=== PATIENT | male | born 1960 | race Caucasian/White ===

== ENCOUNTER 2021-01-28 09:06 | Emergency (ER) | payer MEDICAID, MEDICARE ==
--- NOTE | 2021-01-28 09:29 | EDM.PDOC ---
ED HPI GENERAL MEDICAL PROBLEM - General Chief Complaint: Genitourinary Problem Stated Complaint: BLOATED-SENT BY CLINIC Time Seen by Provider: 01/28/21 09:19 - History of Present Illness INITIAL COMMENTS - FREE TEXT/NARRATIVE: 60-year-old male presents the emergency room with difficulty voiding increased edema in his lower extremities and abdominal distention. Patient has history of renal failure. Patient has noticed over the last couple of weeks that he is having more difficulty passing urine. He was able to give us a urine specimen here but patient states he had to drink 2 cups of coffee before coming in. Patient normally uses 1-1/2 L of oxygen. Patient states he has had bad lungs. Patient denies any chest pain at this point he is a little uncomfortable in his extremities and his abdomen from the edema and distention. Patient also thinks he had some testicular swelling about a week ago. Generalized Pain Score (Numeric/FACES): 5 - Related Data Allergies Allergy/AdvReac Type Severity Reaction Status Date / Time No Known Allergies Allergy Verified 01/28/21 09:28 Home Meds: Home Meds Furosemide 40 mg PO DAILY #33 ml 01/28/21 [Rx] Furosemide 40 mg PO DAILY #33 tablet 01/28/21 [Rx] Furosemide [Lasix] 40 mg PO DAILY 01/28/21 [History] Rosuvastatin Calcium 20 mg PO DAILY 01/28/21 [History] Spironolactone [Aldactone] 25 mg PO DAILY 01/28/21 [History] Spironolactone [Aldactone] 25 mg PO DAILY #33 tab 01/28/21 [Rx] Spironolactone [Aldactone] 25 mg PO DAILY #33 tablet 01/28/21 [Rx] lisinopriL [Lisinopril] 20 mg PO DAILY 01/28/21 [History] ED ROS GENERAL - Review of Systems Review Of Systems: See Below Constitutional: Reports: No Symptoms HEENT: Reports: No Symptoms Respiratory: Reports: Shortness of Breath. Denies: Pleuritic Chest Pain Cardiovascular: Reports: Dyspnea on Exertion, Edema. Denies: Chest Pain Endocrine: Reports: No Symptoms GI/Abdominal: Reports: Distension. Denies: Abdominal Pain, Constipation, Diarrhea, Nausea, Vomiting : Denies: Discharge, Dysuria, Frequency Musculoskeletal: Reports: No Symptoms Skin: Reports: No Symptoms Neurological: Reports: No Symptoms Psychiatric: Reports: No Symptoms ED EXAM, GENERAL - Physical Exam Exam: See Below Exam Limited By: No Limitations General Appearance: Alert, No Apparent Distress, Obese Eye Exam: Bilateral Eye: Normal Inspection Ears: Normal External Exam, Normal Canal, Hearing Grossly Normal, Normal TMs Nose: Normal Inspection, Normal Mucosa, No Blood Throat/Mouth: Normal Inspection, Normal Lips, Normal Teeth, Normal Gums, Normal Oropharynx, Normal Voice, No Airway Compromise Head: Atraumatic, Normocephalic Neck: Normal Inspection, Supple, Non-Tender, Full Range of Motion Respiratory/Chest: No Respiratory Distress, Decreased Breath Sounds, Crackles (In the lung bases). No: Rales, Rhonchi, Wheezing Cardiovascular: Regular Rate, Rhythm, No Murmur, Other (2 plus pitting edema lower extremities) GI/Abdominal: Normal Bowel Sounds, Non-Tender, Distended. No: No Distention Back Exam: Normal Inspection. No: CVA Tenderness (L), CVA Tenderness (R) #1 Interpretation EKG Date: 01/28/21 Rhythm: NSR Rate (Beats/Min): 74 [place]: Normal P-Wave: Present QRS: Other (Interventricular conduction delay versus right bundle branch block with left posterior follicular block) QT: Normal Comparison: NA - No Prior EKG EKG Interpretation Comments: Abnormal EKG Course - Vital Signs Last Recorded V/S: Last Vital Signs Temp 36.7 C 01/28/21 09:15 Pulse 80 01/28/21 09:15 Resp 22 H 01/28/21 09:15 BP 128/95 H 01/28/21 09:15 Pulse Ox 80 L 01/28/21 09:15 - Orders/Labs/Meds Orders: Active Orders 24 hr Category Date Time Status EKG Documentation Completion [RC] STAT Care 01/28/21 09:30 Active Labs: Laboratory Tests 01/28/21 01/28/21 01/28/21 Range/Units 09:10 09:37 09:37 WBC 8.16 (4.23-9.07) K/mm3 RBC 4.29 L (4.63-6.08) M/mm3 Hgb 14.7 (13.7-17.5) gm/dl Hct 46.8 (40.1-51.0) % MCV 109.1 H D (79.0-92.2) fl MCH 34.3 H (25.7-32.2) pg MCHC 31.4 L (32.2-35.5) g/dl RDW Std Deviation 60.3 H (35.1-43.9) fL Plt Count 182 (163-337) K/mm3 MPV 10.0 (9.4-12.3) fl Neut % (Auto) 78.5 H (34.0-67.9) % Lymph % (Auto) 14.0 L (21.8-53.1) % [place] % (Auto) 6.9 (5.3-12.2) % Eos % (Auto) 0.4 L (0.8-7.0) Baso % (Auto) 0.1 (0.1-1.2) % Neut # (Auto) 6.41 H (1.78-5.38) K/mm3 Lymph # (Auto) 1.14 L (1.32-3.57) K/mm3 [place] # (Auto) 0.56 (0.30-0.82) K/mm3 Eos # (Auto) 0.03 L (0.04-0.54) K/mm3 Baso # (Auto) 0.01 (0.01-0.08) K/mm3 Manual Slide Review Abnormal smear PT 10.6 (9.7-12.0) SECONDS INR 0.99 APTT 25.5 (21.7-31.4) SECONDS Sodium (136-145) mEq/L Potassium (3.5-5.1) mEq/L Chloride (98-107) mEq/L Carbon Dioxide (21-32) mEq/L Anion Gap (5-15) BUN (7-18) mg/dL Creatinine (0.7-1.3) mg/dL Est Cr Clr Drug Dosing mL/min Estimated GFR (MDRD) (>60) mL/min BUN/Creatinine Ratio (14-18) Glucose (70-99) mg/dL Calcium (8.5-10.1) mg/dL Total Bilirubin (0.2-1.0) mg/dL AST (15-37) U/L ALT (16-63) U/L Alkaline Phosphatase (46-116) U/L Troponin I (0.00-0.056) ng/mL NT-Pro-B Natriuret Pep (0-125) pg/mL Total Protein (6.4-8.2) g/dl Albumin (3.4-5.0) g/dl Globulin gm/dL Albumin/Globulin Ratio (1-2) Urine Color Yellow (Yellow) Urine Appearance Clear (Clear) Urine pH 6.0 (5.0-8.0) Ur Specific [place] > or = 1.030 (1.005-1.030) Urine Protein Negative (Negative) Urine Glucose (UA) Negative (Negative) Urine Ketones Negative (Negative) Urine Occult Blood Trace-lysed H (Negative) Urine Nitrite Negative (Negative) Urine Bilirubin Negative (Negative) Urine Urobilinogen 0.2 (0.2-1.0) Ur Leukocyte Esterase Negative (Negative) U Hyaline Cast (Auto) 0-5 (0-5) /lpf Urine RBC 0-5 (0-5) /hpf Urine WBC Not seen (0-5) /hpf Ur Squamous Epith Cells 0-5 (0-5) /hpf Urine Bacteria Rare (FEW) /hpf Urine Mucus Moderate H (FEW) /hpf 01/28/21 01/28/21 Range/Units 09:37 09:37 WBC (4.23-9.07) K/mm3 RBC (4.63-6.08) M/mm3 Hgb (13.7-17.5) gm/dl Hct (40.1-51.0) % MCV (79.0-92.2) fl MCH (25.7-32.2) pg MCHC (32.2-35.5) g/dl RDW Std Deviation (35.1-43.9) fL Plt Count (163-337) K/mm3 MPV (9.4-12.3) fl Neut % (Auto) (34.0-67.9) % Lymph % (Auto) (21.8-53.1) % [place] % (Auto) (5.3-12.2) % Eos % (Auto) (0.8-7.0) Baso % (Auto) (0.1-1.2) % Neut # (Auto) (1.78-5.38) K/mm3 Lymph # (Auto) (1.32-3.57) K/mm3 [place] # (Auto) (0.30-0.82) K/mm3 Eos # (Auto) (0.04-0.54) K/mm3 Baso # (Auto) (0.01-0.08) K/mm3 Manual Slide Review PT (9.7-12.0) SECONDS INR APTT (21.7-31.4) SECONDS Sodium 142 (136-145) mEq/L Potassium 4.2 (3.5-5.1) mEq/L Chloride 103 (98-107) mEq/L Carbon Dioxide 34 H (21-32) mEq/L Anion Gap 9.2 (5-15) BUN 9 (7-18) mg/dL Creatinine 1.3 (0.7-1.3) mg/dL Est Cr Clr Drug Dosing 58.46 mL/min Estimated GFR (MDRD) 56 (>60) mL/min BUN/Creatinine Ratio 6.9 L (14-18) Glucose 100 H (70-99) mg/dL Calcium 8.4 L (8.5-10.1) mg/dL Total Bilirubin 0.5 (0.2-1.0) mg/dL AST 26 (15-37) U/L ALT 32 (16-63) U/L Alkaline Phosphatase 57 (46-116) U/L Troponin I 0.025 (0.00-0.056) ng/mL NT-Pro-B Natriuret Pep 1375 H (0-125) pg/mL Total Protein 6.7 (6.4-8.2) g/dl Albumin 3.1 L (3.4-5.0) g/dl Globulin 3.6 gm/dL Albumin/Globulin Ratio 0.9 L (1-2) Urine Color (Yellow) Urine Appearance (Clear) Urine pH (5.0-8.0) Ur Specific [place] (1.005-1.030) Urine Protein (Negative) Urine Glucose (UA) (Negative) Urine Ketones (Negative) Urine Occult Blood (Negative) Urine Nitrite (Negative) Urine Bilirubin (Negative) Urine Urobilinogen (0.2-1.0) Ur Leukocyte Esterase (Negative) U Hyaline Cast (Auto) (0-5) /lpf Urine RBC (0-5) /hpf Urine WBC (0-5) /hpf Ur Squamous Epith Cells (0-5) /hpf Urine Bacteria (FEW) /hpf Urine Mucus (FEW) /hpf Meds: Medications Discontinued Medications Generic Name Dose Route Start Last Admin Trade Name Cari PRN Reason Stop Dose Admin Furosemide 80 mg 01/28/21 11:11 01/28/21 12:36 Furosemide 40 Mg/4 Ml Vial IVPUSH 01/28/21 11:12 80 mg NOW ONE Administration Potassium Chloride 20 meq 01/28/21 11:11 01/28/21 12:36 Potassium Chloride 20 Meq Tab.Er PO 01/28/21 11:12 20 meq ONETIME ONE Administration - Re-Assessments/Exams Free Text/Narrative Re-Assessment/Exam: 01/28/21 11:14 Chest x-ray shows mild pulmonary congestion. I will give him 80 mg of IV Lasix one-time and 20 mEq of oral potassium. See how he does his kidney function looks reasonable. Anticipate discharge if he has a good diuretic response we will double his spironolactone and Lasix for 3 days and then have him follow-up with the clinic on Monday. 01/28/21 15:27 The patient has had 2 L of fluid out plus what he inadvertently dumped, and he feels he is doing better. We will discharge him home. Have him take 2 Lasix 40 mg daily for 3 days and 2 spironolactone 25 mg daily for 3 days and then on Monday resume normal dosing 1 tablet of each daily and have him follow-up in the clinic early next week for recheck. Departure - Departure Time of Disposition: 15:28 Disposition: Home, Self-Care 01 Clinical Impression: Edema, Congestive heart failure (CHF) - Discharge Information Prescriptions: Spironolactone [Aldactone] 25 mg PO DAILY #33 tablet Spironolactone [Aldactone] 25 mg PO DAILY #33 tab Furosemide 40 mg PO DAILY #33 ml Furosemide 40 mg PO DAILY #33 tablet Instructions: Edema, [id number] Referrals: Howard Lucio MD [Primary Care Provider] - Forms: ED Department Discharge Additional Instructions: Return to the emergency room with any questions problems or worsening symptoms. I have sent new prescriptions for the furosemide and spironolactone to [facility] pharmacy across from [facility]. You should take 2 tablets of the furosemide and 2 tablets of the spironolactone every morning starting tomorrow morning take 2 tablets again Monday and Monday and then on Monday decrease it back to 1 tablet of the spironolactone and 1 tablet of the furosemide. Follow-up with your physician early next week for recheck. Sepsis Event Note (ED) - Focused Exam Vital Signs: Vital Signs Temp Pulse Resp BP Pulse Ox 01/28/21 09:15 36.7 C 80 22 H 128/95 H 80 L - My Orders Last 24 Hours: My Active Orders 01/28/21 09:30 EKG Documentation Completion [RC] STAT - Assessment/Plan Last 24 Hours: My Active Orders 01/28/21 09:30 EKG Documentation Completion [RC] STAT
--- NOTE | 2021-01-28 10:33 | CR ---
Chest: Portable view of the chest was obtained. Comparison: Prior chest CT study of 07/15/19. Heart size and mediastinum are within normal limits. Lungs shows minimal pulmonary vascular prominence. Lungs otherwise are clear. Bony structures appear within normal limits for the patient's age. Impression: 1. Pulmonary vessels felt to be slightly congested. 2. Nothing acute is otherwise seen. Diagnostic code #3
[2021-01-28] MEDS ORDERED: Potassium Chloride 20 MEQ Tab.ER PO ONE (11:11)
[2021-01-28] MEDS ORDERED: Furosemide 40 MG/4 ML VIAL IVPUSH ONE (11:11)
== END 2021-01-28 15:45 | disposition home or self-care (01) ==
LOC: JD.ED 09:06
DX: I50.9 Heart failure, unspecified (principal); R94.31 Abnormal electrocardiogram [ECG] [EKG]; Z79.899 Other long term (current) drug therapy
CPT/HCPCS: 36415; 71045; 80053; 81001; 83880; 84484; 85025; 85610; 85730; 93005; 96374; 99284; A9270; J1940; 93010; 99283

== ENCOUNTER 2021-02-16 13:36 | Emergency (ER) | payer MEDICAID ==
[2021-02-16] MEDS ORDERED: Furosemide 40 MG/4 ML VIAL IVPUSH ONE (14:20)
--- NOTE | 2021-02-16 14:28 | EDM.PDOC ---
ED HPI GENERAL MEDICAL PROBLEM - General Chief Complaint: Respiratory Problem Stated Complaint: [facility] Time Seen by Provider: 02/16/21 14:08 Source of Information: Reports: Patient, RN Notes Reviewed History Limitations: Reports: No Limitations - History of Present Illness INITIAL COMMENTS - FREE TEXT/NARRATIVE: Patient is a 60-year-old male presents to the ER for the evaluation of his hypoxia. Patient was brought by [facility] because the [facility] states that the gentleman's oxygen saturations were in the high 60s low 70s, they did put oxygen on him at that time. Does have a history of COPD, heart failure, chronic kidney disease, and wears oxygen at 1-1/2 L as needed at home. Patient is complaining mostly about being "full of fluid", he states that he has not been taking his medications as he should notes from the provider at [place] states he is only taking his furosemide 20 mg and spironolactone 25 mg once daily instead of 2 times a day. Notes he is to see specialty provider on April 04, and he does not think he is getting anywhere with his. Patient is on 3 and half liters via nasal cannula at this time, and he has O2 sats of roughly 93%. Patient has at least 2+ pitting edema on bilateral lower extremities, he is complaining of abdominal discomfort/distention, and also states he "cannot pee" but will not elaborate on this. He has had no fever, no worsening cough, and shortness of breath that he relates to the extra fluid. He is further denying any nausea/vomiting/diarrhea. Patient primary care providers Dr. Lucio from [facility] - Related Data Allergies Allergy/AdvReac Type Severity Reaction Status Date / Time No Known Allergies Allergy Verified 02/16/21 13:41 Home Meds: Home Meds Rosuvastatin Calcium 20 mg PO DAILY 01/28/21 [History] Spironolactone [Aldactone] 25 mg PO DAILY 01/28/21 [History] lisinopriL [Lisinopril] 20 mg PO DAILY 01/28/21 [History] Albuterol Sulfate [Albuterol Sulfate HFA] 2 puff INH ASDIRECTED 02/16/21 [History] Fluticasone Propion/Salmeterol [Fluticasone-Salmeterol 500-50] 1 each IH ASD IRECTED 02/16/21 [History] Torsemide 20 mg PO ASDIRECTED 02/16/21 [History] Umeclidinium [place] [Incruse Ellipta] 1 puff IH 02/16/21 [History] Past Medical History Cardiovascular History: Reports: CAD, Heart Failure, Hypertension, Other (See Below) (RBBB and LPFB on EKG) Respiratory History: Reports: Other (See Below) Other Respiratory History: "lung issues" Genitourinary History: Reports: Chronic Renal Insuffiency Other Genitourinary History: Pt on Lasix Social & Family History - Family History Family Medical History: No Pertinent Family History - Tobacco Use Tobacco Use Status *Q: Former Tobacco User Used Tobacco, but Quit: Yes Month/Year Tobacco Last Used: 07/2012 - Caffeine Use Caffeine Use: Reports: Coffee - Recreational Drug Use Recreational Drug Use: Yes Drug Use in Last 12 Months: No Recreational Drug Type: Reports: Cocaine Recreational Drug Use Frequency: Not Used In Over 1 Year ED ROS GENERAL - Review of Systems Review Of Systems: Comprehensive ROS is negative, except as noted in HPI. ED EXAM, GENERAL - Physical Exam Exam: See Below Exam Limited By: No Limitations General Appearance: Alert, WD/WN, Mild Distress (pt is taking short splinting breaths- it is hard for him to talk in complete sentences) Respiratory/Chest: Chest Non-Tender, Respiratory Distress (mild distress noted), Crackles (diffuse bilaterally), Splinting. No: Wheezing Cardiovascular: Normal Peripheral Pulses, Regular Rate, Rhythm, Other (2+ pitting edema to bilateral lower extremities) Peripheral Pulses: 2+: Radial (L), Radial (R) Extremities: Normal Range of Motion, Normal Capillary Refill, Pedal Edema (2+ pitting edema to bilateral lower extremities.) Neurological: Alert, Oriented, Normal Cognition, No Motor/Sensory Deficits Psychiatric: Normal Affect, Normal Mood Skin Exam: Warm, Dry, Intact, No Rash, Cyanosis (pt has a generalized dusky appearance to skin.) #1 Interpretation EKG Date: 02/16/21 Time: 13:49 Rhythm: NSR Rate (Beats/Min): 86 [place]: LAD-Left [place] Deviation (-151 ) P-Wave: Present QRS: RBBB (And left posterior fascicular block) ST-T: Normal QT: Normal Comparison: No Change (From 01/28/2021) EKG Interpretation Comments: Dr. Hare does appreciate a Q-wave in aVL, tall R waves in V1, which T wave inversion in V1 through V4. No obvious acute ST abnormalities are appreciated. Course - Vital Signs Last Recorded V/S: Last Vital Signs Temp 98.3 F 02/16/21 13:45 Pulse 90 02/16/21 13:45 Resp 24 H 02/16/21 13:45 BP 121/70 02/16/21 13:45 Pulse Ox 78 L 02/16/21 13:45 - Orders/Labs/Meds Labs: Laboratory Tests 02/16/21 02/16/21 02/16/21 Range/Units 13:45 13:45 13:45 WBC 12.44 H (4.23-9.07) K/mm3 RBC 4.87 (4.63-6.08) M/mm3 Hgb 15.9 (13.7-17.5) gm/dl Hct 52.4 H (40.1-51.0) % MCV 107.6 H (79.0-92.2) fl MCH 32.6 H (25.7-32.2) pg MCHC 30.3 L (32.2-35.5) g/dl RDW Std Deviation 57.7 H (35.1-43.9) fL Plt Count 247 (163-337) K/mm3 MPV 9.9 (9.4-12.3) fl Neut % (Auto) 83.2 H (34.0-67.9) % Lymph % (Auto) 9.0 L (21.8-53.1) % [place] % (Auto) 7.3 (5.3-12.2) % Eos % (Auto) 0.2 L (0.8-7.0) Baso % (Auto) 0.1 (0.1-1.2) % Neut # (Auto) 10.34 H (1.78-5.38) K/mm3 Lymph # (Auto) 1.12 L (1.32-3.57) K/mm3 [place] # (Auto) 0.91 H (0.30-0.82) K/mm3 Eos # (Auto) 0.03 L (0.04-0.54) K/mm3 Baso # (Auto) 0.01 (0.01-0.08) K/mm3 Manual Slide Review Abnormal smear Puncture Site ABG pH (7.35-7.45) ABG pCO2 (35.0-45.0) mmHg ABG pO2 (80.0-100.0) mmHg ABG HCO3 (22.0-26.0) meq/L ABG O2 Saturation (96.0-97.0) % ABG Base Excess (-2-2.0) A-a Gradient mmHg O2 Delivery Device Oxygen Flow Rate FiO2 (21.00-100.00) % Sodium 141 (136-145) mEq/L Potassium 4.9 (3.5-5.1) mEq/L Chloride 100 (98-107) mEq/L Carbon Dioxide 41 H* (21-32) mEq/L Anion Gap 4.9 L (5-15) BUN 17 (7-18) mg/dL Creatinine 1.3 (0.7-1.3) mg/dL Est Cr Clr Drug Dosing 58.46 mL/min Estimated GFR (MDRD) 56 (>60) mL/min BUN/Creatinine Ratio 13.1 L (14-18) Glucose 112 H (70-99) mg/dL Calcium 8.5 (8.5-10.1) mg/dL Total Bilirubin 0.7 (0.2-1.0) mg/dL AST 30 (15-37) U/L ALT 47 (16-63) U/L Alkaline Phosphatase 62 (46-116) U/L Troponin I 0.025 (0.00-0.056) ng/mL NT-Pro-B Natriuret Pep 2331 H (0-125) pg/mL Total Protein 6.6 (6.4-8.2) g/dl Albumin 3.1 L (3.4-5.0) g/dl Globulin 3.5 gm/dL Albumin/Globulin Ratio 0.9 L (1-2) Influenza Type A RNA (NEGATIVE) Influenza Type B RNA (NEGATIVE) SARS-CoV-2 RNA ([place]) (NEGATIVE) 02/16/21 02/16/21 Range/Units 14:00 14:40 WBC (4.23-9.07) K/mm3 RBC (4.63-6.08) M/mm3 Hgb (13.7-17.5) gm/dl Hct (40.1-51.0) % MCV (79.0-92.2) fl MCH (25.7-32.2) pg MCHC (32.2-35.5) g/dl RDW Std Deviation (35.1-43.9) fL Plt Count (163-337) K/mm3 MPV (9.4-12.3) fl Neut % (Auto) (34.0-67.9) % Lymph % (Auto) (21.8-53.1) % [place] % (Auto) (5.3-12.2) % Eos % (Auto) (0.8-7.0) Baso % (Auto) (0.1-1.2) % Neut # (Auto) (1.78-5.38) K/mm3 Lymph # (Auto) (1.32-3.57) K/mm3 [place] # (Auto) (0.30-0.82) K/mm3 Eos # (Auto) (0.04-0.54) K/mm3 Baso # (Auto) (0.01-0.08) K/mm3 Manual Slide Review Puncture Site Lt radial ABG pH 7.29 L (7.35-7.45) ABG pCO2 85.2 H* (35.0-45.0) mmHg ABG pO2 81.0 (80.0-100.0) mmHg ABG HCO3 40.1 H (22.0-26.0) meq/L ABG O2 Saturation 94.0 L (96.0-97.0) % ABG Base Excess 9.6 H (-2-2.0) A-a Gradient 41 mmHg O2 Delivery Device Nasal cannula Oxygen Flow Rate 3.5 FiO2 32.00 (21.00-100.00) % Sodium (136-145) mEq/L Potassium (3.5-5.1) mEq/L Chloride (98-107) mEq/L Carbon Dioxide (21-32) mEq/L Anion Gap (5-15) BUN (7-18) mg/dL Creatinine (0.7-1.3) mg/dL Est Cr Clr Drug Dosing mL/min Estimated GFR (MDRD) (>60) mL/min BUN/Creatinine Ratio (14-18) Glucose (70-99) mg/dL Calcium (8.5-10.1) mg/dL Total Bilirubin (0.2-1.0) mg/dL AST (15-37) U/L ALT (16-63) U/L Alkaline Phosphatase (46-116) U/L Troponin I (0.00-0.056) ng/mL NT-Pro-B Natriuret Pep (0-125) pg/mL Total Protein (6.4-8.2) g/dl Albumin (3.4-5.0) g/dl Globulin gm/dL Albumin/Globulin Ratio (1-2) Influenza Type A RNA Negative (NEGATIVE) Influenza Type B RNA Negative (NEGATIVE) SARS-CoV-2 RNA ([place]) Negative (NEGATIVE) Meds: Medications Discontinued Medications Generic Name Dose Route Start Last Admin Trade Name Freq PRN Reason Stop Dose Admin Furosemide 60 mg 02/16/21 14:20 02/16/21 14:36 Furosemide 40 Mg/4 Ml Vial IVPUSH 02/16/21 14:21 60 mg NOW ONE Administration - Re-Assessments/Exams Free Text/Narrative Re-Assessment/Exam: 02/16/21 14:30 Patient presents to the ER for evaluation of his hypoxia and shortness of breath. O2 sats at time of triage were 70%, he was placed on 3.5 L nasal cannula, and he has been having O2 sats in the 93 to 94% range. Patient has visible mild respiratory distress. He is in fluid retention just on clinical exam. Chest x-ray did show pulmonary vascular congestion pattern appreciated by myself and Dr. Hare official radiology read is still pending. Initial EKG shows right bundle branch block and left posterior fascicular block, but this is not changed from his EKG done on 01/28/2021. Troponin is within normal limits, but there is a slight bump at 0.028. Patient will likely need hospitalization due to the amount of fluid he has been retaining, blood gas to be obtained. White cell count is elevated at 12.8 with 85% neutrophils. Metabolic panel is impressive for a CO2 level of 41, and a decreased anion gap at 4.9, likely the patient is a CO2 retainer, he does have a history of COPD, chronic kidney disease, and heart failure. 02/16/21 15:44 The patient's blood gas did demonstrate a pH of 7.29, with a CO2 of above 80 mmHg patient's bicarb level was in the 40s as well. Looks like he does have an acute respiratory acidosis, compatible with acute respiratory failure, but there is a component of compensation due to his bicarb being as high as it is. I did order BiPAP to be placed on the patient, as nursing staff state that he has started to tire, and has been getting sleepy in the room and they have had to yell to wake him up. I have discussed the case with Dr. Hare, and he thinks is appropriate to get BiPAP on the patient at this time to try to bridge the gap, so the patient does not need intubation. 02/16/21 16:04 I was informed by nursing staff, that the patient did leave AGAINST MEDICAL ADVICE, because he did not want to keep the BiPAP on as he could not tolerate it. He was verbally abusive with staff, and told one of the nurses to "F off Bch" before leaving. I did not have a chance to speak with him as the ER has been extremely busy and I was trying to coordinate 2 other transfers at the same time he was leaving. Departure - Departure Time of Disposition: 16:05 Disposition: Against Medical Advice 07 Condition: Fair Clinical Impression: Acute respiratory failure with hypoxia CHF exacerbation Qualifiers: Heart failure type: unspecified Qualified Code(s): I50.9 - Heart failure, unspecified - Discharge Information Referrals: Howard Lucio MD [Primary Care Provider] - Forms: ED Department Discharge Sepsis Event Note (ED) - Evaluation Sepsis Screening Result: No Definite Risk - Focused Exam Vital Signs: Vital Signs Temp Pulse Resp BP Pulse Ox 02/16/21 13:45 98.3 F 90 24 H 121/70 78 L
--- NOTE | 2021-02-16 14:41 | CR ---
Chest: Portable view of the chest was obtained. Comparison: Prior chest x-ray of 01/28/21. Heart size and mediastinum are within normal limits for portable technique. Central lung markings are increased which appear fairly stable from prior chest x-ray. Thickening of the right minor fissure is seen which is stable. No acute parenchymal change is seen. No acute osseous abnormality is appreciated. Impression: 1. Stable chest x-ray from prior exam. 2. Nothing acute is definitely seen. Diagnostic code #2
[2021-02-16 15:07] LABS: CORONAVIRUS COVID-19 NAA NEGATIVE (NEGATIVE)
== END 2021-02-16 15:49 | disposition left against medical advice (07) ==
LOC: JD.ED 13:36
DX: J96.01 Acute respiratory failure with hypoxia (principal); I13.0 Hypertensive heart and chronic kidney disease with heart failure and stage 1 through stage 4 chronic kidney disease, or unspecified chronic kidney disease; N18.9 Chronic kidney disease, unspecified; I50.9 Heart failure, unspecified; I25.10 Atherosclerotic heart disease of native coronary artery without angina pectoris; I45.2 Bifascicular block; Z87.891 Personal history of nicotine dependence; Z79.899 Other long term (current) drug therapy; Z20.822 Contact with and (suspected) exposure to COVID-19
CPT/HCPCS: 0240U; 36415; 36600; 71045; 80053; 82803; 83880; 84484; 85025; 93005; 96374; 99284; J1940; 93010

== ENCOUNTER 2021-03-26 17:57 | Emergency (ER) | payer MEDICAID ==
--- NOTE | 2021-03-26 18:19 | EDM.PDOC ---
<Jone Rehman Marlen - Last Filed: 03/26/21 19:05> ED HPI GENERAL MEDICAL PROBLEM - General Chief Complaint: Respiratory Problem Stated Complaint: HEART ISSUES Time Seen by Provider: 03/26/21 18:16 - History of Present Illness INITIAL COMMENTS - FREE TEXT/NARRATIVE: 60-year-old male sent over from the [facility] with worsening COPD and congestive heart failure. The patient is not exactly sure how long his edema has been getting worse but it has probably been the last several days at one point he was on Lasix according to the patient but no longer is he. Dr. Brock called before the patient came over and had a hard time being certain what medications he was supposed to be on but thought it was something like this Demadex 20 mg 3 times a day spironolactone 25 mg twice daily Advair Crestor Viagra and supplemental O2. At the clinic his O2 saturation was in the 70s on supplemental oxygen. Patient denies chest pain at this time is short of breath and is quite concerned over the increased edema he is having. He is denying pain at this time. He does have some abdominal discomfort when he walks but attributes this to increased distention most likely due to fluid accumulation. - Related Data Allergies Allergy/AdvReac Type Severity Reaction Status Date / Time No Known Allergies Allergy Verified 03/26/21 18:17 Home Meds: Home Meds Rosuvastatin Calcium 20 mg PO DAILY 01/28/21 [History] Spironolactone [Aldactone] 25 mg PO BID 01/28/21 [History] Albuterol Sulfate [Albuterol Sulfate HFA] 2 puff INH ASDIRECTED PRN 02/16/21 [History] Fluticasone Propion/Salmeterol [Fluticasone-Salmeterol 500-50] 1 each IH ASDIRECTED 02/16/21 [History] Torsemide 20 mg PO BID 02/16/21 [History] Umeclidinium Marshall [Incruse Ellipta] 1 puff IH DAILY 02/16/21 [History] Past Medical History HEENT History: Reports: None Cardiovascular History: Reports: CAD, Heart Failure, Hypertension, Other (See Below) (RBBB and LPFB on EKG) Respiratory History: Reports: Other (See Below) Other Respiratory History: "lung issues" Gastrointestinal History: Reports: None Genitourinary History: Reports: Chronic Renal Insuffiency Other Genitourinary History: Pt on Lasix Musculoskeletal History: Reports: None Neurological History: Reports: None Psychiatric History: Reports: None Endocrine/Metabolic History: Reports: None Hematologic History: Reports: None Immunologic History: Reports: None Oncologic (Cancer) History: Reports: None Dermatologic History: Reports: None - Infectious Disease History Infectious Disease History: Reports: None Other Infectious Disease History: Pt refuses to answer questions - Past Surgical History Head Surgeries/Procedures: Reports: None Social & Family History - Family History Family Medical History: No Pertinent Family History - Caffeine Use Caffeine Use: Reports: Coffee ED ROS GENERAL - Review of Systems Review Of Systems: See Below Constitutional: Reports: No Symptoms, Weakness, Fatigue HEENT: Reports: No Symptoms Respiratory: Reports: Shortness of Breath, Cough. Denies: Sputum Cardiovascular: Reports: Dyspnea on Exertion, Edema. Denies: Chest Pain, Syncope Endocrine: Reports: Fatigue GI/Abdominal: Denies: Constipation, Diarrhea, Nausea, Vomiting : Reports: No Symptoms. Denies: Frequency, Urgency Musculoskeletal: Reports: No Symptoms Skin: Reports: No Symptoms Neurological: Reports: No Symptoms ED EXAM, GENERAL - Physical Exam Exam: See Below Exam Limited By: No Limitations General Appearance: Alert, No Apparent Distress, Other (Is on supplemental oxyg en and this is helping his saturation is good vital signs stable) Eye Exam: Bilateral Eye: Normal Inspection Ears: Normal External Exam, Normal Canal, Hearing Grossly Normal, Normal TMs Nose: Normal Inspection, Normal Mucosa, No Blood Throat/Mouth: Normal Inspection, Normal Lips, Normal Gums, Normal Oropharynx, Normal Voice, No Airway Compromise Head: Atraumatic, Normocephalic Neck: Normal Inspection, Supple, Non-Tender, Other (No JVD). No: Lymp hadenopathy (L), Lymphadenopathy (R) Respiratory/Chest: No Respiratory Distress, Decreased Breath Sounds, Crackles (Bibasilar crackles) Cardiovascular: Regular Rate, Rhythm. No: No Edema (He has significant lower extremity pitting edema, pitting sacral edema) GI/Abdominal: Normal Bowel Sounds, Distended (Distention cannot exclude some intra-abdominal fluid collection or ascites). No: No Distention Back Exam: Normal Inspection, Other (Trace presacral edema). No: CVA Tenderness (L), CVA Tenderness (R) Extremities: Pedal Edema (2-3+ lower extremity pitting edema). No: No Pedal Edema Neurological: Alert, Oriented, Normal Cognition Skin Exam: Warm, Dry, Intact #1 Interpretation EKG Date: 03/26/21 Rhythm: NSR Rate (Beats/Min): 83 Republic: LAD-Left Republic Deviation (Extreme) P-Wave: Present QRS: RBBB ST-T: Other (Unspecific nondiagnostic change) QT: Normal Comparison: No Change (No significant change from February 16, 2021) EKG Interpretation Comments: Abnormal EKG Course - Re-Assessments/Exams Free Text/Narrative Re-Assessment/Exam: 03/26/21 19:10 Labs and x-ray ordered the patient has received 60 mg of IV Lasix. At this time is change of shift further care and disposition per Dr. Clark Departure - Departure Disposition: Home, Self-Care 01 Clinical Impression: Edema of both lower extremities due to peripheral venous insufficiency - Discharge Information Instructions: Edema Referrals: Felipe Brock MD [Primary Care Provider] - Forms: ED Department Discharge Additional Instructions: You were seen in the emergency room for swelling/edema of both of your lower extremities. Work-up in the ER included numerous blood tests, a swab for the SARS-CoV-2 virus, a urinalysis, a chest x-ray, and an ECG. Your work-up found that you are NOT in decompensated heart failure. Your lower extremity swelling/edema appears to be due to venous insufficiency. We recommend that you purchase and begin wearing compression stockings on both of your lower extremities, every day. Apply them in the morning, and remove them at bedtime. Your oxygen saturation was found to drop when you were asleep and snoring. If you have not already been diagnosed with obstructive sleep apnea, we recommend that you follow-up with your PCP, Dr. Felipe Brock, to arrange for a sleep study. If any other problems, please do not hesitate to return to the ER. <Bong Clark - Last Filed: 03/26/21 22:04> Course - Vital Signs Last Recorded V/S: Last Vital Signs Temp 36.6 C 03/26/21 18:13 Pulse 86 03/26/21 18:45 Resp 20 03/26/21 18:45 BP 134/97 H 03/26/21 18:45 Pulse Ox 93 L 03/26/21 18:45 - Orders/Labs/Meds Orders: Active Orders 24 hr Category Date Time Status ABG [RT Arterial Blood Gases, ABG] [RC] Click to Edit Care 03/26/21 19:04 Active Labs: Laboratory Tests 03/26/21 03/26/21 03/26/21 Range/Units 18:42 18:45 18:45 WBC 9.24 H (4.23-9.07) K/mm3 RBC 5.46 (4.63-6.08) M/mm3 Hgb 15.5 (13.7-17.5) gm/dl Hct 53.5 H (40.1-51.0) % MCV 98.0 H D (79.0-92.2) fl MCH 28.4 (25.7-32.2) pg MCHC 29.0 L (32.2-35.5) g/dl RDW Std Deviation 58.7 H (35.1-43.9) fL Plt Count 208 (163-337) K/mm3 MPV 9.9 (9.4-12.3) fl Neut % (Auto) 75.2 H (34.0-67.9) % Lymph % (Auto) 15.3 L (21.8-53.1) % Kerr % (Auto) 8.9 (5.3-12.2) % Eos % (Auto) 0.4 L (0.8-7.0) Baso % (Auto) 0.1 (0.1-1.2) % Neut # (Auto) 6.95 H (1.78-5.38) K/mm3 Lymph # (Auto) 1.41 (1.32-3.57) K/mm3 Kerr # (Auto) 0.82 (0.30-0.82) K/mm3 Eos # (Auto) 0.04 (0.04-0.54) K/mm3 Baso # (Auto) 0.01 (0.01-0.08) K/mm3 PT 11.4 (9.7-12.0) SECONDS INR 1.07 APTT 24.5 (21.7-31.4) SECONDS D-Dimer, Quantitative < 0.19 L (0.19-0.50) mg/L Sodium (136-145) mEq/L Potassium (3.5-5.1) mEq/L Chloride (98-107) mEq/L Carbon Dioxide (21-32) mEq/L Anion Gap (5-15) BUN (7-18) mg/dL Creatinine (0.7-1.3) mg/dL Est Cr Clr Drug Dosing mL/min Estimated GFR (MDRD) (>60) mL/min BUN/Creatinine Ratio (14-18) Glucose (70-99) mg/dL Calcium (8.5-10.1) mg/dL Magnesium (1.8-2.4) mg/dL Total Bilirubin (0.2-1.0) mg/dL AST (15-37) U/L ALT (16-63) U/L Alkaline Phosphatase (46-116) U/L Troponin I (0.00-0.056) ng/mL NT-Pro-B Natriuret Pep (0-125) pg/mL Total Protein (6.4-8.2) g/dl Albumin (3.4-5.0) g/dl Globulin gm/dL Albumin/Globulin Ratio (1-2) Urine Color (Yellow) Urine Appearance (Clear) Urine pH (5.0-8.0) Ur Specific [place] (1.005-1.030) Urine Protein (Negative) Urine Glucose (UA) (Negative) Urine Ketones (Negative) Urine Occult Blood (Negative) Urine Nitrite (Negative) Urine Bilirubin (Negative) Urine Urobilinogen (0.2-1.0) Ur Leukocyte Esterase (Negative) Ethyl Alcohol (0.00) gm% SARS-CoV-2 RNA (BRYON) Negative (NEGATIVE) 03/26/21 03/26/21 03/26/21 Range/Units 18:45 18:45 18:45 WBC (4.23-9.07) K/mm3 RBC (4.63-6.08) M/mm3 Hgb (13.7-17.5) gm/dl Hct (40.1-51.0) % MCV (79.0-92.2) fl MCH (25.7-32.2) pg MCHC (32.2-35.5) g/dl RDW Std Deviation (35.1-43.9) fL Plt Count (163-337) K/mm3 MPV (9.4-12.3) fl Neut % (Auto) (34.0-67.9) % Lymph % (Auto) (21.8-53.1) % Kerr % (Auto) (5.3-12.2) % Eos % (Auto) (0.8-7.0) Baso % (Auto) (0.1-1.2) % Neut # (Auto) (1.78-5.38) K/mm3 Lymph # (Auto) (1.32-3.57) K/mm3 Kerr # (Auto) (0.30-0.82) K/mm3 Eos # (Auto) (0.04-0.54) K/mm3 Baso # (Auto) (0.01-0.08) K/mm3 PT (9.7-12.0) SECONDS INR APTT (21.7-31.4) SECONDS D-Dimer, Quantitative (0.19-0.50) mg/L Sodium 139 (136-145) mEq/L Potassium 4.5 (3.5-5.1) mEq/L Chloride 98 (98-107) mEq/L Carbon Dioxide 40 H (21-32) mEq/L Anion Gap 5.5 (5-15) BUN 20 H (7-18) mg/dL Creatinine 1.2 (0.7-1.3) mg/dL Est Cr Clr Drug Dosing 63.33 mL/min Estimated GFR (MDRD) > 60 (>60) mL/min BUN/Creatinine Ratio 16.7 (14-18) Glucose 93 (70-99) mg/dL Calcium 8.8 (8.5-10.1) mg/dL Magnesium 2.2 (1.8-2.4) mg/dL Total Bilirubin 0.6 (0.2-1.0) mg/dL AST 31 (15-37) U/L ALT 33 (16-63) U/L Alkaline Phosphatase 68 (46-116) U/L Troponin I 0.032 (0.00-0.056) ng/mL NT-Pro-B Natriuret Pep 1648 H (0-125) pg/mL Total Protein 6.7 (6.4-8.2) g/dl Albumin 3.1 L (3.4-5.0) g/dl Globulin 3.6 gm/dL Albumin/Globulin Ratio 0.9 L (1-2) Urine Color (Yellow) Urine Appearance (Clear) Urine pH (5.0-8.0) Ur Specific [place] (1.005-1.030) Urine Protein (Negative) Urine Glucose (UA) (Negative) Urine Ketones (Negative) Urine Occult Blood (Negative) Urine Nitrite (Negative) Urine Bilirubin (Negative) Urine Urobilinogen (0.2-1.0) Ur Leukocyte Esterase (Negative) Ethyl Alcohol 0.00 (0.00) gm% SARS-CoV-2 RNA (BRYON) (NEGATIVE) 03/26/21 Range/Units 19:20 WBC (4.23-9.07) K/mm3 RBC (4.63-6.08) M/mm3 Hgb (13.7-17.5) gm/dl Hct (40.1-51.0) % MCV (79.0-92.2) fl MCH (25.7-32.2) pg MCHC (32.2-35.5) g/dl RDW Std Deviation (35.1-43.9) fL Plt Count (163-337) K/mm3 MPV (9.4-12.3) fl Neut % (Auto) (34.0-67.9) % Lymph % (Auto) (21.8-53.1) % Kerr % (Auto) (5.3-12.2) % Eos % (Auto) (0.8-7.0) Baso % (Auto) (0.1-1.2) % Neut # (Auto) (1.78-5.38) K/mm3 Lymph # (Auto) (1.32-3.57) K/mm3 Kerr # (Auto) (0.30-0.82) K/mm3 Eos # (Auto) (0.04-0.54) K/mm3 Baso # (Auto) (0.01-0.08) K/mm3 PT (9.7-12.0) SECONDS INR APTT (21.7-31.4) SECONDS D-Dimer, Quantitative (0.19-0.50) mg/L Sodium (136-145) mEq/L Potassium (3.5-5.1) mEq/L Chloride (98-107) mEq/L Carbon Dioxide (21-32) mEq/L Anion Gap (5-15) BUN (7-18) mg/dL Creatinine (0.7-1.3) mg/dL Est Cr Clr Drug Dosing mL/min Estimated GFR (MDRD) (>60) mL/min BUN/Creatinine Ratio (14-18) Glucose (70-99) mg/dL Calcium (8.5-10.1) mg/dL Magnesium (1.8-2.4) mg/dL Total Bilirubin (0.2-1.0) mg/dL AST (15-37) U/L ALT (16-63) U/L Alkaline Phosphatase (46-116) U/L Troponin I (0.00-0.056) ng/mL NT-Pro-B Natriuret Pep (0-125) pg/mL Total Protein (6.4-8.2) g/dl Albumin (3.4-5.0) g/dl Globulin gm/dL Albumin/Globulin Ratio (1-2) Urine Color Light yellow (Yellow) Urine Appearance Clear (Clear) Urine pH 7.0 (5.0-8.0) Ur Specific [place] 1.020 (1.005-1.030) Urine Protein Negative (Negative) Urine Glucose (UA) Negative (Negative) Urine Ketones Negative (Negative) Urine Occult Blood Negative (Negative) Urine Nitrite Negative (Negative) Urine Bilirubin Negative (Negative) Urine Urobilinogen 0.2 (0.2-1.0) Ur Leukocyte Esterase Negative (Negative) Ethyl Alcohol (0.00) gm% SARS-CoV-2 RNA (BRYON) (NEGATIVE) Meds: Medications Discontinued Medications Generic Name Dose Route Start Last Admin Trade Name Cari PRN Reason Stop Dose Admin Furosemide 60 mg 03/26/21 18:36 03/26/21 18:53 Furosemide 20 Mg/2 Ml Vial IVPUSH 03/26/21 18:37 60 mg ONETIME ONE Administration - Re-Assessments/Exams Free Text/Narrative Re-Assessment/Exam: 03/26/21 20:[address] Rehman for change of shift. I agree with his history and physical examination as documented. Portable chest x-ray is read by Dr. Emerson as: 1. Findings as noted above. 2. Nothing acute is definitely appreciated. 03/26/21 21:31 The patient's CBC is remarkable for mild leukocytosis of 9.24, and a Hct slightly elevated at 53.5, with a Hgb within normal limits at 15.5, and the remainder of his CBC being unremarkable. His CMP is remarkable for a bicarbonate elevated at 40, and a BUN elevated 20 with a Cr normal at 1.2, and the remainder of his CMP being unremarkable. His magnesium level is within normal limits at 2.2. His troponin is within normal limits at 0.032. His D-dimer is undetectably low. His pro-BNP is elevated at 1648. His coags are within normal limits. His EtOH level is 0.00. His swab for the SARS-CoV-2 virus is negative. His urinalysis is unremarkable. 03/26/21 21:39 I attempted to discuss the patient's test results with him, however, he wanted to sleep and asked me to come back later, which is not an option for me. He tells me that he takes oxygen at 1.5 L continuously, day or night, although he seemed to imply that he wears it when he wants to, not necessarily all the time. Today's work-up does not indicate decompensated CHF, rather, his lower extremity edema, which I would estimate at 2-3+, appears to be due to venous insufficiency. The treatment for that is compression stockings, not an increase in diuretics. I also noticed that the patient's oxygen saturation was down into the 80s while he was sleeping and snoring, however, improved to over 90% when he woke up. The patient would not tell me if he has obstructive sleep apnea or if he wears CPAP at night. If he has not been diagnosed with that, he should probably undergo a sleep study. I will discharge the patient home with recommendation that he begin wearing compression stockings, and that he follow-up with Dr. Brock to undergo a sleep study, if that has not already been done. Departure - Departure Time of Disposition: 21:41 Condition: Good - Discharge Information *PRESCRIPTION DRUG MONITORING PROGRAM REVIEWED*: Not Applicable *COPY OF PRESCRIPTION DRUG MONITORING REPORT IN PATIENT FELICE: Not Applicable Sepsis Event Note (ED) - Focused Exam Vital Signs: Vital Signs Temp Pulse Resp BP Pulse Ox 03/26/21 18:45 86 20 134/97 H 93 L 03/26/21 18:22 95 03/26/21 18:13 36.6 C 91 18 132/98 H 61 L
[2021-03-26] MEDS ORDERED: Furosemide 20 MG/2 ML VIAL IVPUSH ONE (18:36)
--- NOTE | 2021-03-26 20:06 | CR ---
Chest: Portable view of the chest was obtained. Comparison: Prior chest x-ray of 02/16/21. Several areas of scarring are seen within the right lower lung. Lung markings are slightly increased but appear stable. Heart size is at the upper limits of normal which is also stable. Bony structure shows nothing acute. Impression: 1. Findings as noted above. 2. Nothing acute is definitely appreciated. Diagnostic code #2
== END 2021-03-26 22:00 | disposition home or self-care (01) ==
LOC: JD.ED 17:57
DX: R60.0 Localized edema (principal); I73.9 Peripheral vascular disease, unspecified; I25.10 Atherosclerotic heart disease of native coronary artery without angina pectoris; I13.0 Hypertensive heart and chronic kidney disease with heart failure and stage 1 through stage 4 chronic kidney disease, or unspecified chronic kidney disease; N18.9 Chronic kidney disease, unspecified; I50.9 Heart failure, unspecified; Z79.899 Other long term (current) drug therapy; Z20.822 Contact with and (suspected) exposure to COVID-19
CPT/HCPCS: 36415; 71045; 80053; 80307; 81003; 83735; 83880; 84484; 85025; 85379; 85610; 85730; 87635; 93005; 96374; 99285; J1940; 93010; 99284; U0002

== ENCOUNTER 2021-08-02 11:36 | Emergency (ER) | payer MEDICAID ==
[2021-08-02] MEDS ORDERED: Sodium Chloride 0.9% 10 ML Syringe FLUSH PRN (11:40)
[2021-08-02] MEDS ORDERED: Furosemide 40 MG/4 ML VIAL IVPUSH ONE (11:58)
[2021-08-02 12:50] LABS: CORONAVIRUS COVID-19 NAA NEGATIVE (NEGATIVE)
[2021-08-02] MEDS ORDERED: methylPREDNISolone Sodium Succinate 125 MG/2 ML SDV IVPUSH ONE (12:54)
[2021-08-02] MEDS ORDERED: Albuterol/Ipratropium 3.0-0.5 MG/3 ML Neb Soln NEB ONE (12:54)
[2021-08-02] MEDS ORDERED: propofoL 100 ML ONE (18:07)
[2021-08-02] MEDS ORDERED: cefTRIAXone 2 GM in Sodium Chloride 0.9% 100 ML IV ONE (18:50)
[2021-08-02] MEDS ORDERED: Azithromycin 500 MG in Sodium Chloride 0.9% 250 ML IV ONE (18:51)
[2021-08-02] MEDS ORDERED: Propofol 200 MG/20 ML SDV ONE (19:30)
[2021-08-02] MEDS ORDERED: Succinylcholine 200 MG/10 ML MDV ONE (19:30)
[2021-08-02] MEDS ORDERED: propofoL 100 ML IV SCH (19:30)
== END 2021-08-02 20:07 ==
LOC: SUPCPDRO 11:36 → JD.ED 11:36
DX: J44.9 Chronic obstructive pulmonary disease, unspecified (principal); J96.90 Respiratory failure, unspecified, unspecified whether with hypoxia or hypercapnia; I13.0 Hypertensive heart and chronic kidney disease with heart failure and stage 1 through stage 4 chronic kidney disease, or unspecified chronic kidney disease; N18.9 Chronic kidney disease, unspecified; I50.9 Heart failure, unspecified; I25.10 Atherosclerotic heart disease of native coronary artery without angina pectoris; I45.10 Unspecified right bundle-branch block; Z79.82 Long term (current) use of aspirin; Z79.899 Other long term (current) drug therapy; Z20.822 Contact with and (suspected) exposure to COVID-19
CPT/HCPCS: 0241U; 31500; 36415; 36600; 43752; 51702; 71045; 80053; 82803; 83880; 84484; 85025; 85379; 86140; 93005; 94640; 94660; 96365; 96367; 96375; 99285; J0330; J0456; J0696; J1940; J2704; J2930; J7050; J3490; J7620-GY

== ENCOUNTER 2022-04-04 10:12 | Emergency (ER) | payer MEDICAID ==
[2022-04-04] MEDS ORDERED: Polyethylene Glycol 3350 Powder 17 GM Packet PO ONE (11:15)
[2022-04-04] MEDS ORDERED: Sodium Chloride 0.9% 10 ML Syringe FLUSH PRN (11:15)
[2022-04-04] MEDS ORDERED: Sodium Chloride 0.9% 1,000 ML IV ONE ×3 (11:15→21:23)
[2022-04-04] MEDS ORDERED: Polyethylene Glycol/Electrolytes 4,000 ML Bottle PO ONE (11:38)
[2022-04-04 12:15] LABS: ESTIMATED GFR 29 mL/min (>60)
[2022-04-04] MEDS ORDERED: Potassium Chloride 20 MEQ Tab.ER PO ONE ×2 (12:21→19:44)
[2022-04-04] MEDS: Potassium Chloride 10 MEQ in Premix Bag 1 BAG IV SCH ×7 (12:32→22:29)
[2022-04-04] MEDS ORDERED: Dicyclomine 10 MG Cap PO ONE (15:33)
[2022-04-04 19:32] LABS: ESTIMATED GFR 32 mL/min (>60)
[2022-04-04] MEDS ORDERED: LORazepam 2 MG/ML SDV IVPUSH ONE (19:53)
[2022-04-04] MEDS ORDERED: Sodium Chloride 0.9% 1,000 ML ONE (21:16)
[2022-04-04] MEDS: Potassium Chloride 20 MEQ Tab.ER PO SCH (23:16)
[2022-04-05] MEDS: Potassium Chloride 10 MEQ in Premix Bag 1 BAG IV SCH ×5 (00:11→11:25)
[2022-04-05] MEDS: Potassium Chloride 20 MEQ Tab.ER PO SCH ×7 (00:35→12:22)
[2022-04-05] MEDS ORDERED: Albuterol/Ipratropium 3.0-0.5 MG/3 ML Neb Soln NEB ONE ×2 (04:32→10:24)
[2022-04-05 04:48] LABS: ESTIMATED GFR 40 mL/min (>60)
[2022-04-05] MEDS ORDERED: Potassium Chloride 20 MEQ Tab.ER PO ONE (05:26)
[2022-04-05 08:14] LABS: ESTIMATED GFR 45 mL/min (>60)
[2022-04-05 12:45] LABS: ESTIMATED GFR 42 mL/min (>60)
== END 2022-04-05 14:20 | disposition home or self-care (01) ==
LOC: JD.ED 10:12
DX: E87.6 Hypokalemia (principal); I10 Essential (primary) hypertension; I50.9 Heart failure, unspecified; I25.10 Atherosclerotic heart disease of native coronary artery without angina pectoris; Z87.891 Personal history of nicotine dependence
CPT/HCPCS: 36415; 74019; 80048; 80053; 83735; 85025; 93005; 94640; 96361; 96365; 96366; 96375; 99284; A9270; J2060; J3480; J3490; J7030; 93010; J7620-GY

== ENCOUNTER 2023-01-05 09:13 | Emergency (ER) | payer MEDICARE, MEDICAID ==
[2023-01-05] MEDS ORDERED: Sodium Chloride 0.9% 10 ML Syringe FLUSH PRN (10:01)
[2023-01-05] MEDS ORDERED: Potassium Chloride 20 MEQ Tab.ER PO ONE (10:02)
[2023-01-05 10:36] LABS: BASOPHILS ABSOLUTE AUTO 0.02 K/mm3 (0.01-0.08); BASOPHILS PERCENT AUTO 0.2 % (0.1-1.2); EOSINOPHILS ABSOLUTE AUTO 0.05 K/mm3 (0.04-0.54); EOSINOPHILS PERCENT AUTO 0.5 (0.8-7.0); HEMATOCRIT 44.2 % (40.1-51.0); HEMOGLOBIN 14.5 gm/dl (13.7-17.5); IMMATURE GRAN ABSOLUTE AUTO 0.02 K/mm3 (0.00-0.10); IMMATURE GRAN PERCENT AUTO 0.2 % (<=1.0); LYMPHOCYTES ABSOLUTE AUTO 1.32 K/mm3 (1.32-3.57); LYMPHOCYTES PERCENT AUTO 13.1 % (21.8-53.1); MEAN CORPUSCULAR HEMOGLOBIN 31.2 pg (25.7-32.2); MEAN CORPUSCULAR HGB CONC 32.8 g/dl (32.2-35.5); MEAN CORPUSCULAR VOLUME 95.1 fl (79.0-92.2); MEAN PLATELET VOLUME 10.6 fl (9.4-12.3); MONOCYTES ABSOLUTE AUTO 0.72 K/mm3 (0.30-0.82); MONOCYTES PERCENT AUTO 7.2 % (5.3-12.2); NEUTROPHILS ABSOLUTE AUTO 7.93 K/mm3 (1.78-5.38); NEUTROPHILS PERCENT AUTO 78.8 % (34.0-67.9); PLATELET COUNT,PLT 246 K/mm3 (163-337); RED BLOOD CELL COUNT 4.65 M/mm3 (4.63-6.08); WHITE BLOOD CELL COUNT,WBC 10.06 K/mm3 (4.23-9.07)
[2023-01-05] MEDS: Potassium Chloride 10 MEQ in Premix Bag 1 BAG IV SCH ×4 (10:51→14:57)
[2023-01-05 10:55] LABS: A/G RATIO 0.8 (1-2); ALBUMIN 3.4 g/dl (3.4-5.0); ANION GAP 10.5 (5-15); BILIRUBIN TOTAL 0.6 mg/dL (0.2-1.0); BUN/CREATININE RATIO 16.7 (14-18); CALCIUM 8.8 mg/dL (8.5-10.1); CREATININE 1.8 mg/dL (0.7-1.3); EST CRCL DRUG DOSING (CG) 41.17 mL/min; MAGNESIUM 1.8 mg/dL (1.8-2.4); PROTEIN TOTAL,TP 7.6 g/dl (6.4-8.2)
[2023-01-05 10:56] LABS: POTASSIUM,K 2.5 mEq/L (3.5-5.1)
== END 2023-01-05 16:30 | disposition home or self-care (01) ==
LOC: JD.ED 09:13
DX: E87.6 Hypokalemia (principal); N28.9 Disorder of kidney and ureter, unspecified; I25.10 Atherosclerotic heart disease of native coronary artery without angina pectoris; I11.0 Hypertensive heart disease with heart failure; I50.9 Heart failure, unspecified; Z79.82 Long term (current) use of aspirin; Z79.899 Other long term (current) drug therapy
CPT/HCPCS: 36415; 80053; 83735; 83880; 84484; 85025; 93005; 96365; 96366; 99285; A9270; J3480; J3490

== ENCOUNTER 2024-11-21 10:48 | Inpatient (IN) | payer MEDICARE, MEDICAID ==
[2024-11-21] MEDS ORDERED: Sodium Chloride 0.9% 10 ML Syringe FLUSH PRN (11:12)
[2024-11-21] MEDS: Albuterol/Ipratropium 3.0-0.5 MG/3 ML Neb Soln NEB ONE ×3 (11:32→15:28)
[2024-11-21] MEDS: Albuterol/Ipratropium 3.0-0.5 MG/3 ML Neb Soln ONE (11:52)
[2024-11-21 12:02] LABS: BASOPHILS PERCENT AUTO 0.4 % (0.0-1.0); EOSINOPHILS ABSOLUTE AUTO 0.2 K/mm3 (0.0-0.4); HEMATOCRIT 43.9 % (42.0-52.0); HEMOGLOBIN 13.7 gm/dl (14.0-18.0); IMMATURE GRAN ABSOLUTE AUTO 0.02 K/mm3 (0.00-0.05); IMMATURE GRAN PERCENT AUTO 0.3 % (0.0-0.4); LYMPHOCYTES ABSOLUTE AUTO 0.6 K/mm3 (1.0-4.8); LYMPHOCYTES PERCENT AUTO 7.7 % (24.0-44.0); MEAN CORPUSCULAR HEMOGLOBIN 29.4 pg (28.0-32.0); MEAN CORPUSCULAR HGB CONC 31.2 g/dl (32.0-36.0); MEAN CORPUSCULAR VOLUME 94.2 fl (83.0-99.0); MEAN PLATELET VOLUME 9.3 fl (9.4-12.4); MONOCYTES ABSOLUTE AUTO 0.5 K/mm3 (0.0-0.8); MONOCYTES PERCENT AUTO 5.8 % (0.0-8.0); NEUTROPHILS ABSOLUTE AUTO 6.6 K/mm3 (1.8-7.7); NEUTROPHILS PERCENT AUTO 83.8 % (41.0-71.0); PLATELET COUNT,PLT 211 K/mm3 (150-400); RED BLOOD CELL COUNT 4.66 M/mm3 (4.52-5.90); WHITE BLOOD CELL COUNT,WBC 7.92 K/mm3 (3.9-11.3)
[2024-11-21 12:45] LABS: A/G RATIO 0.8 (1-2); ALBUMIN 3.2 g/dl (3.4-5.0); ANION GAP 5.5 (5-15); BILIRUBIN TOTAL 0.4 mg/dL (0.2-1.0); BUN/CREATININE RATIO 11.3 (14-18); C-REACTIVE PROTEIN 1.52 mg/dL (<0.30); CALCIUM 8.9 mg/dL (8.5-10.1); CREATININE 1.5 mg/dL (0.7-1.3); EST CRCL DRUG DOSING (CG) 48.13 mL/min; POTASSIUM,K 4.5 mEq/L (3.5-5.1); PROTEIN TOTAL,TP 7.3 g/dl (6.4-8.2)
[2024-11-21] MEDS: methylPREDNISolone Sodium Succinate 125 MG/2 ML SDV IVPUSH ONE (15:48)
[2024-11-21] MEDS ORDERED: Ondansetron 4 MG/2 ML SDV IV PRN (16:18)
[2024-11-21] MEDS ORDERED: Acetaminophen 325 MG Tab PO PRN (16:18)
[2024-11-21] MEDS ORDERED: Albuterol/Ipratropium 3.0-0.5 MG/3 ML Neb Soln NEB SCH (16:30)
[2024-11-21] MEDS: Doxycycline Monohydrate 100 MG Cap PO SCH (20:45)
[2024-11-21] MEDS: Albuterol/Ipratropium 3.0-0.5 MG/3 ML Neb Soln NEB SCH (21:15)
[2024-11-22] MEDS: predniSONE 20 MG Tab PO SCH (06:03)
[2024-11-22 07:11] LABS: HEMATOCRIT 44.3 % (42.0-52.0); HEMOGLOBIN 13.3 gm/dl (14.0-18.0); MEAN CORPUSCULAR HEMOGLOBIN 28.9 pg (28.0-32.0); MEAN CORPUSCULAR VOLUME 96.1 fl (83.0-99.0); MEAN PLATELET VOLUME 9.3 fl (9.4-12.4); PLATELET COUNT,PLT 225 K/mm3 (150-400); RED BLOOD CELL COUNT 4.61 M/mm3 (4.52-5.90); WHITE BLOOD CELL COUNT,WBC 9.83 K/mm3 (3.9-11.3)
[2024-11-22 07:37] LABS: A/G RATIO 0.7 (1-2); ALBUMIN 2.8 g/dl (3.4-5.0); ANION GAP 10.4 (5-15); BILIRUBIN TOTAL 0.3 mg/dL (0.2-1.0); BUN/CREATININE RATIO 12.3 (14-18); CALCIUM 8.7 mg/dL (8.5-10.1); CREATININE 1.3 mg/dL (0.7-1.3); EST CRCL DRUG DOSING (CG) 55.54 mL/min; POTASSIUM,K 4.4 mEq/L (3.5-5.1); PROTEIN TOTAL,TP 6.8 g/dl (6.4-8.2)
[2024-11-22] MEDS: Enoxaparin 40 MG/0.4 ML Syringe SUBCUT SCH (08:48)
[2024-11-22] MEDS: Famotidine 20 MG Tab PO SCH (10:32)
[2024-11-22] MEDS: QUEtiapine 25 MG Tab PO SCH (10:32)
[2024-11-22] MEDS: Torsemide 20 MG Tab PO SCH (10:32)
[2024-11-22] MEDS: Potassium Chloride 20 MEQ Tab.ER PO SCH (10:32)
[2024-11-22] MEDS: Aspirin 81 MG Tab.EC PO SCH (10:32)
[2024-11-22] MEDS: Montelukast 10 MG Tab PO SCH (10:32)
[2024-11-22] MEDS: Ipratropium 0.02% 0.5 MG/2.5 ML Neb Soln INH SCH (12:03)
[2024-11-22] MEDS: Tiotropium Bromide 4 GM Inhalation Spray (2.5mcg/1 dose; 10 doses) INH SCH (12:16)
[2024-11-22] MEDS: Formoterol/Mometasone 200-5 MCG 8.8 GM Inhaler INH SCH (20:45)
[2024-11-23 06:03] LABS: HEMATOCRIT 41.3 % (42.0-52.0); HEMOGLOBIN 12.4 gm/dl (14.0-18.0); MEAN CORPUSCULAR HEMOGLOBIN 28.5 pg (28.0-32.0); MEAN CORPUSCULAR VOLUME 94.9 fl (83.0-99.0); MEAN PLATELET VOLUME 9.6 fl (9.4-12.4); PLATELET COUNT,PLT 206 K/mm3 (150-400); RED BLOOD CELL COUNT 4.35 M/mm3 (4.52-5.90)
[2024-11-23] MEDS: Pantoprazole 40 MG Tab.CR PO SCH (06:07)
[2024-11-23 06:55] LABS: A/G RATIO 0.7 (1-2); ALBUMIN 2.8 g/dl (3.4-5.0); BILIRUBIN TOTAL 0.2 mg/dL (0.2-1.0); BUN/CREATININE RATIO 17.7 (14-18); CALCIUM 9.1 mg/dL (8.5-10.1); CREATININE 1.3 mg/dL (0.7-1.3); EST CRCL DRUG DOSING (CG) 55.54 mL/min; PROTEIN TOTAL,TP 6.6 g/dl (6.4-8.2)
[2024-11-23] MEDS: Tiotropium Bromide 4 GM Inhalation Spray (2.5mcg/1 dose; 10 doses) INH SCH (08:16)
[2024-11-23] MEDS ORDERED: Tiotropium Bromide 4 GM Inhalation Spray (2.5mcg/1 dose; 10 doses) INH SCH (09:00)
== END 2024-11-23 13:20 | disposition left against medical advice (07) | DRG 189 ==
LOC: JD.ED 10:48 → JD.MS 15:50
PROVIDERS: ADMIT Internal Medicine; ATTEND Student in an Organized Health Care Education/Training Program
DX: J96.01 Acute respiratory failure with hypoxia (principal); J44.1 Chronic obstructive pulmonary disease with (acute) exacerbation; I50.9 Heart failure, unspecified; I13.0 Hypertensive heart and chronic kidney disease with heart failure and stage 1 through stage 4 chronic kidney disease, or unspecified chronic kidney disease; I50.32 Chronic diastolic (congestive) heart failure; Z68.43 Body mass index [BMI] 50.0-59.9, adult; I25.10 Atherosclerotic heart disease of native coronary artery without angina pectoris; N18.9 Chronic kidney disease, unspecified; C61 Malignant neoplasm of prostate; E66.01 Morbid (severe) obesity due to excess calories; Z79.51 Long term (current) use of inhaled steroids; Z79.899 Other long term (current) drug therapy; Z79.82 Long term (current) use of aspirin
CPT/HCPCS: 36415; 71045; 80053; 83880; 84484; 85025; 86140; 93005; 94640 ×2; 96374; 99285; A9270 ×2; J2919; 85027; 93010; 94660; 94668; 94761; 99239; J1650; J7512